=== PATIENT | female | born 1975 | race Two or more races ===

== ENCOUNTER → 2024-09-05 08:54 | Outpatient (REF) | payer OTHER, SELFPAY | LOC: WDC 08:54 | PROVIDERS: ATTENDING PHYSICIAN Surgery; FAMILY PHYSICIAN Internal Medicine | DX: N63.10 Unspecified lump in the right breast, unspecified quadrant (principal); N63.13 Unspecified lump in the right breast, lower outer quadrant; N63.31 Unspecified lump in axillary tail of the right breast | CPT/HCPCS: 76642; 77062; 77066 ==

== ENCOUNTER → 2024-11-29 11:17 | Outpatient (REF) | payer OTHER, SELFPAY | LOC: RAD 11:17 | PROVIDERS: ATTENDING PHYSICIAN Internal Medicine | DX: K59.09 Other constipation (principal) | CPT/HCPCS: 74019 ==

== ENCOUNTER → 2024-12-01 09:31 | Outpatient (REF) | payer OTHER, SELFPAY | LOC: RAD 09:31 | PROVIDERS: ATTENDING PHYSICIAN Obstetrics & Gynecology; FAMILY PHYSICIAN Internal Medicine; OTHER PHYSICIAN Internal Medicine | DX: K59.00 Constipation, unspecified (principal); K59.02 Outlet dysfunction constipation | CPT/HCPCS: 74270 ==

== ENCOUNTER 2025-05-10 05:48 | Day surgery (SDC) | payer OTHER, SELFPAY ==
[2025-04-28 09:09] LABS: Hematocrit 40.4 % (37.0-47.0); Hemoglobin 14.7 g/dL (12.0-16.0); Mean Corp Hgb Conc. 36.4 g/dL (33.0-37.0); Mean Corpuscular Volume 92.7 fL (81.0-99.0); Platelet Count 251 10^3/uL (130-400); Red Cell Dist. Width 12.6 % (11.5-14.5)
[2025-04-28 09:53] LABS: Blood Urea Nitrogen 15 mg/dl (7-17); Calcium 9.3 mg/dl (8.4-10.2); Carbon Dioxide 25 mmol/L (22-30); Chloride 102 mmol/L (98-107); Glucose 83 mg/dl (70-99); Potassium 4.2 mmol/L (3.5-5.1); Sodium 134 mmol/L (135-145); eGFR > 60.00
[2025-04-28 14:11] VITALS: BMI 19.8
[2025-05-10] VITALS (52 sets, daily range): BP systolic 82–133; BP diastolic 50–93; BMI 19.8
[2025-05-10] MEDS: NORMOSOL-R/PLASMALYTE-A 1000 IV ×3 (06:53→23:04)
[2025-05-10] MEDS: DDAVP 54 MCG IV (06:54)
--- NOTE | 2025-05-10 07:14 | PTCARENOTE ---
PT/PTT not drawn in PAT Dr. Cantor made aware. PT/PTT did not need to be drawn.
--- NOTE | 2025-05-10 07:15 | PTCARENOTE ---
PT/PTT was not ordered on PAT sheet.
[2025-05-10] MEDS: DILAUDID 0.5 MG IV ×5 (11:33→17:56)
[2025-05-10 11:45] LABS: Hematocrit 33.3 % (37.0-47.0); Hemoglobin 12.2 g/dL (12.0-16.0)
[2025-05-10] MEDS: OFIRMEV 100 IV (11:54)
[2025-05-10] MEDS: ZOFRAN 4 MG IV (13:26)
[2025-05-10] MEDS: FLEXERIL 5 MG PO (17:13)
[2025-05-10] MEDS: ATIVAN 0.5 MG PO (17:14)
--- NOTE | 2025-05-10 17:23 | PTCARENOTE ---
Pt arrived 1500. VSS 5 lap sites open to air with glue. acharya draining orange urine. IVF infusing. pain 03/16. medicated per MAR. oriented to room and call skelton. bed locked and in lowest position. Care ongoing.
--- NOTE | 2025-05-10 18:13 | PTCARENOTE ---
Pt complaining 8/10 pain 1 hour after 0.5mg Dilaudid was given. Pt has hx of chronic pain and worried about pain becoming out of control. Informed Dr. Cantor. order to give another dose of 0.5 Dilaudid now. Care ongoing.
[2025-05-10] MEDS: BENADRYL 25 MG IV (18:32)
[2025-05-10 18:38] LABS: Hematocrit 35.4 % (37.0-47.0); Hemoglobin 12.9 g/dL (12.0-16.0); Mean Corp Hgb Conc. 36.4 g/dL (33.0-37.0); Mean Corpuscular Volume 91.0 fL (81.0-99.0); Platelet Count 246 10^3/uL (130-400); Red Cell Dist. Width 11.4 % (11.5-14.5)
--- NOTE | 2025-05-10 19:12 | W.PN.UPDATE ---
Update Note
Progress Note Update
Patient seen in conjunction with VICE PRESIDENT DIVERSITY, I agree the findings on history and physical. I concur with the assessment and plan unless stated otherwise.
This is a 49-year-old female with past medical history significant for IBS, chronic pain, von Willebrand factor deficiency, PCOS, GERD, migraine headaches on as needed opioid analog tapentadol at 50mg 10 tablet per month who is status post
uncomplicated hysterectomy and prolapse repair this morning. Medicine is being consulted for pain management and concern for opioid withdrawal.
Patient is on multiple pain medications but only with small doses of tapentadol 50mg as needed. Tapentadol is the only narcotic that the patient has on the PDMP. She gets only 10 tablets per prescription and uses once daily PNR. She is also on
non-opioid analgesics prn. Based on prescription doses and current vital signs are physical exam patient is not at high risk for opioid withdrawal unless she is using nonprescription opioid medications.
Tapentadol is 0.4 mme equivalent. She does not tolerate dilaudid but has tolerated morphine well in the past
Recommendations
- Check urine drug screen
- Continue with regular postop pain management with use of morpine 2mg iv prn as needed for pain. Does not need nucynta if getting IV morphine prn
- Continue nonopioid/non-nsaids analgesics as described in the REPAIRER SCREEN CRUSHER note.
- rest of plan as per screenplay writer note
[2025-05-10] MEDS: COLACE 100 MG PO (19:42)
[2025-05-10] MEDS: ALDACTONE 100 MG PO (19:42)
--- NOTE | 2025-05-10 19:48 | CON.HOSP ---
Addendum entered and electronically signed by Fanny Thompson MD 05/10/25 22:02:
Patient seen in conjunction with BUSINESS INTELLIGENCE MANAGER, I agree the findings on history and physical. I concur with the assessment and plan unless stated otherwise.
This is a 49-year-old female with past medical history significant for IBS, chronic pain, von Willebrand factor deficiency, PCOS, GERD, migraine headaches on as needed opioid analog tapentadol at 50mg 10 tablet per month who is status post
uncomplicated hysterectomy and prolapse repair this morning. Medicine is being consulted for pain management and concern for opioid withdrawal.
Patient is on multiple pain medications but only with small doses of tapentadol 50mg as needed. Tapentadol is the only narcotic that the patient has on the PDMP. She gets only 10 tablets per prescription and uses once daily PRN. She is also on
non-opioid analgesics prn. Based on prescription doses and current vital signs are physical exam patient is not at high risk for opioid withdrawal unless she is using nonprescription opioid medications.
Tapentadol is 0.4 mme equivalent. She does not tolerate dilaudid and did develop a reaction after dilaudid today with tremulousness. She has tolerated morphine well in the past.
Recommendations
- Check urine drug screen
- Continue with regular postop pain management with use of morphine 2mg iv prn as needed for pain. Does not need nucynta if getting IV morphine prn
- Continue non-opioid/non-nsaids analgesics as described in the FOOD EXPEDITOR note.
- rest of plan as per scientific illustrator note
Original Note:
Family Physician
-
Family Physician: Dale Liu
Chief Complaint
-
Anxiety, tremulousness, itching post IV Dilaudid
History of Present Illness
49-year-old female status post total robotic hysterectomy bilateral salpingectomy, ureteral sacral ligament suspension,posterior colporrhaphy with perineoplasty.Culdoplasty who received IV Dilaudid then started having anxiety/tremulousness/itching
with no hives. She has history of anxiety/hyperactivity with Percocet and Vicodin. She is on chronic oral opiate Nucynta 50 mg as needed by pain management Dr. Liz. Patient also did receive p.o. Ativan for which she takes as needed but did not
call her anxiety down. She has tolerated morphine in the past without anxiety and tremulousness for pain. I discussed with patient if she is able to get a prescription for her Nucynta she can take that for pain and we will DC IV morphine. She is
contacting her pain management physician to see if he will write her for more medication and have her mother bring the medication in tomorrow. We will try IV Valium in place of IV Ativan due to shortage for anxiety and tremulousness. Will also
start Tylenol scheduled for pain control patient has history of von Willebrand's disease we will avoid any NSAIDs or Toradol
She has a past medical history Enterocele/rectocele stage III pelvic organ prolapse, Endometriosis/chronic pelvic pain, chronic neck and back pain on chronic oral opiates, chronic back spasms, von Willebrand's disease, ADHD, migraine headaches,
insomnia, PCOS, GERD, prior obesity, anxiety, acne, IBS, seasonal allergies
Medical History
Past Medical History
Past Medical History: Reports Other
Additional Past Medical History:
Enterocele/rectocele stage III pelvic organ prolapse, Endometriosis/chronic pelvic pain
chronic neck and back pain on chronic oral opiates
chronic back spasms
von Willebrand's disease
ADHD
migraine headaches
insomnia
PCOS
GERD
prior obesity
anxiety
acne
IBS
seasonal allergies
Past Surgical History: Reports Other
Additional Past Surgical History:
Sinus surgery x 4
Spinal fusion
D&C with ablation
Hernia repair as child
Glomus tumor surgery x 7
Toe surgery
Social History
Tobacco: Former Smoker
Alcohol: None
Drug: None
Living: With Family
Family History
Family History: Other (Father history colon polyps, paternal grandfather gastric cancer)
Allergies / Home Medications
Allergies reflects when Allergies were last updated in [facility].
Home Medications with original date entered in [facility]
Allergy/Medication List:
Allergies
Allergy/AdvReac Type Severity Reaction Status Date / Time
codeine Allergy hyperactivi Verified 05/10/25 06:31
ty
hydrocodone Allergy hyperactivi Verified 05/10/25 06:31
ty
hydromorphone Allergy Hives Verified 05/10/25 06:31
NSAIDS (Non-Steroidal Allergy von Verified 05/10/25 06:31
Anti-Inflamma willebrand
disease
oxycodone Allergy hyperactivi Verified 05/10/25 06:31
ty
tramadol Allergy Nausea Verified 05/10/25 06:31
Home Medications
Lactobacillus acidophilus 10 billion cell capsule (Probiotic) 10,000 mmu cells PO DAILY 05/03/25
cyclobenzaprine 5 mg tablet 5 mg PO PRN PRN pain 05/03/25
doxycycline hyclate 100 mg capsule 100 mg PO PRN PRN acne 05/03/25
gabapentin 300 mg capsule 300 mg PO PRN PRN migraines 05/03/25
hydroxyzine pamoate 25 mg capsule 25 mg PO PRN PRN allergies 05/03/25
linaclotide 145 mcg capsule (Linzess) 145 mcg PO PRN PRN IBS-C 05/03/25
lorazepam 0.5 mg tablet 0.5 mg PO PRN PRN anxiety 05/03/25
ondansetron HCl 8 mg tablet 8 mg PO PRN PRN N/V 05/03/25
oxcarbazepine 150 mg tablet 150 mg PO DAILY 05/03/25
oxcarbazepine 150 mg tablet 300 mg PO HS 05/03/25
pantoprazole 40 mg tablet,delayed release 40 mg PO DAILY 05/03/25
plecanatide 3 mg tablet (Trulance) 3 mg PO PRN PRN IBS-C 05/03/25
prucalopride 2 mg tablet 2 mg PO PRN PRN IBS-C 05/03/25
spironolactone 100 mg tablet 100 mg PO BID 05/03/25
suzetrigine 50 mg tablet (Journavx) 50 mg PO PRN PRN pain 05/03/25
tapentadol 50 mg tablet (Nucynta) 50 mg PO PRN PRN pain 05/03/25
tirzepatide (weight loss) 5 mg/0.5 mL subcutaneous pen injector (Zepbound) 5 mg SC NÚÑEZ 05/03/25
trazodone 100 mg tablet 150 mg PO HS 05/03/25
triamcinolone acetonide 0.1 % topical cream 1 applic topical PRN PRN eczema 05/03/25
ubrogepant 100 mg tablet (Ubrelvy) 100 mg PO PRN PRN migraines 05/03/25
valacyclovir 1 gram tablet 1,000 mg PO PRN PRN cold sore 05/03/25
Review of Systems
-
History Source: Patient
A 12 point Review of Systems was completed except as noted: Yes
Constitutional: Denies Fever or Fatigue
EENT: Denies Sore Throat or Runny Nose
Respiratory: Denies Cough or Trouble Breathing
Cardiac: Denies Chest Pain, Diaphoresis or Palpitations
Abdomen/GI: Denies Abdominal Pain, Nausea, Vomiting or Diarrhea
: Denies Dysuria, Frequency or Flank Pain
Musculoskeletal: Denies Joint Pain or Edema
Skin: Reports Itching; Denies Rash
Neurological: Denies Dizzy, Headache or Weakness
Endocrine: Reports No Symptoms
Hematologic/Lymphatic: Reports No Symptoms
Psych: Reports Anxiety (Tremulous)
Physical Exam
Vital Signs
Vital Signs
Temp Pulse Resp BP Pulse Ox
98.1 F 98 18 112/76 98
05/10/25 18:00 05/10/25 18:00 05/10/25 18:00 05/10/25 18:00 05/10/25 18:00
Physical Exam
General: Other (Patient anxious, tremulous and itching post IV Dilaudid likely adverse reaction)
HEENT: Normocephalic, Anicteric and Moist Mucous Membranes
Respiratory: Clear; Negative Wheezes, Rales or Rhonchi
Cardiac: S1/S2 and Regular Rhythm; Negative Murmur, Rub or Peripheral Edema
Breast: Deferred by me
GI: Soft and Tender (Slight generalized laparoscopic sites intact.)
Rectal: Deferred by Provider
Musculoskeletal: No Clubbing, No Cyanosis and No Edema
Skin: Warm, Dry and Other (No visible rash or hives is scratching does have slight redness at scratch ontiveros no airway difficulty); Negative Rash
Neuro: AO x 3, No Motor Deficits and Nonfocal/Grossly Intact; Negative Slurred Speech, Facial Droop, Tremors or Sedated
Psych: Anxious (And tremulous post IV Dilaudid)
Laboratory Results
-
Laboratory Results
05/10/25 18:32
04/28/25 08:44
Impression / Plan
-
Medical consultation
Impression/plan
Patient Admitted to [facility] floor
Consult reason:
#Acute on chronic pain management
Patient follows with Dr. Liz for pain management of chronic neck and back pain
-Does not have any more Nucynta 50 mg she takes as needed she is calling pain management to attempt to get prescription if she obtains prescription she may take 50 mg once daily then DC IV morphine
-Patient also on Journavx but is also out of this medication we do not have equivalent
- Patient with history of anxiety/hyperactivity with Percocet/Vicodin
- After patient receiving IV Dilaudid for pain she became extremely anxious and tremulous
- P.o. Ativan attempted with no help
- Will try IV Valium
- Patient has tolerated IV morphine in the past for pain IV morphine 2 mg mild pain, 4 mg moderate�severe
- Will give Tylenol 650 mg scheduled x 8 doses
- Continue Flexeril 5 mg as needed back spasms
- Continue Benadryl as needed
Enterocele/rectocele stage III pelvic organ prolapse
Endometriosis/chronic pelvic pain
Patient status post total robotic hysterectomy bilateral salpingectomy, ureteral sacral ligament suspension,posterior colporrhaphy with perineoplasty.Culdoplasty.
- Patient being followed by Dr. Andre Cantor
#Von Willebrand's disease
-Patient reports was given DDAVP prior to surgery
-Cannot have any NSAIDs or Toradol
#ADHD hx
#Migraine headaches
-Continue gabapentin 300 mg p.o. as needed
-Continue Tegretol 150 mg a.m., 300 mg at bedtime, Zofran as needed
#Insomnia
May have 5 mg melatonin
#PCOS
- Continue spironolactone
#GERD
Continue Protonix 40 mg daily
#IBS
- Patient takes prucalopride 2 mg as needed IBS symptoms and Trulance 3 mg as needed
Patient on Linzess 145 mcg p.o. as needed
#History of obesity current BMI 19.8 kg
Patient is on Zepbound 5 mg subcu on Sundays which suggest titration down
#Acne
Patient takes doxycycline 100 mg p.o. as needed
DVT prophylaxis
SCDs
Full code
[2025-05-10] MEDS: VALIUM INJECTION 5 MG IV (19:57)
[2025-05-10] MEDS: TYLENOL 650 MG PO (19:58)
[2025-05-10] MEDS: TRILEPTAL 300 MG PO (21:20)
[2025-05-10] MEDS: BENADRYL 25 MG PO (21:20)
[2025-05-10] MEDS: DESYREL 150 MG PO (21:20)
[2025-05-10] MEDS: MORPHINE SULFATE 4 MG IV (21:30)
[2025-05-11] MEDS: TYLENOL 650 MG PO ×4 (01:07→20:45)
--- NOTE | 2025-05-11 03:02 | PTCARENOTE ---
Addendum entered by Swati Barfield RN 05/11/25 03:10:
Pt reported only drips on urine at time.
Original Note:
Pt ambulated to bathroom assist x1. Very anxious about catheter. Instructed that it will be taken out at 0500 per order. Pt insisting it to be removed now because she cannot have a BM. Pt visibility anxious and shaking. BOY Pizarro called and
aware. Instructed it was okay to remove packing & catheter at this time. Pt ambulated back to bed. Vaginal packing and catheter removed at 0300. Pt quickly ambulated back to bathroom to have a bowel movement. Pt seen straining to have a BM.
Educated on the risks of straining. Pt also reported urinating in toilet prior to when hat was placed. Care ongoing.
[2025-05-11 03:20] VITALS: BP 127/85
[2025-05-11] MEDS: MORPHINE SULFATE 4 MG IV ×2 (03:33→06:33)
[2025-05-11] MEDS: FLEXERIL 5 MG PO ×2 (04:43→08:52)
[2025-05-11] MEDS: LINZESS 145 MCG PO (04:50)
[2025-05-11] MEDS: NORMOSOL-R/PLASMALYTE-A 1000 IV (06:23)
[2025-05-11 07:30] VITALS: BP 107/65
--- NOTE | 2025-05-11 07:52 | W.PN.GYN ---
Today's Communication / Plan
-
followup chemistry, restart home meds and stop IV pain medications, discharge today
Physician Note
-
49yoF PMH rectocele, PCOS, von willebrand disease, chronic pain POD1 s/p A robotic total hysterectomy and bilateral salpingectomy, robotic assisted uterosacral ligament suspension, posterior colporrhaphy with perineoplasty, Culdoplasty 05/10/25
Patient was evaluated on AM rounds. Internal medicine was consulted for postop pain control and history of chronic pain. Patient�s incisional pain is currently controlled on morphine 4mg every 3hours. She is tolerating liquids and ambulated to the
bathroom without difficulty. Eckert and vaginal packing was removed this morning and is voiding. She has constipation and last BM was three days ago. She says taking zepbound usually helps her have a BM. She denies nausea, vomiting, chest pain, SOB.
O :
GA: Well appearing female in NAD
HEENT: Normocephalic, EOMI
Abd: soft, nondistended, sutures intact with dermabond,minimal ecchymosis surrounding middle incision incisional tenderness
: no bleeding noted from vaginal incisions
Ext: no lower extremity edema, mild edema in right arm near IV site mild edema in left arm
Vital Signs
Temp Pulse Resp BP Pulse Ox
98.5 F 102 17 127/85 99
05/11/25 03:20 05/11/25 03:20 05/11/25 03:20 05/11/25 03:20 05/11/25 03:20
Intake and Output
05/10/25 05/11/25 05/12/25
06:59 06:59 06:59
Intake Total 200 / 200
Output Total 1974
Balance -1774 / -1774
Intake:
IV fluids (Total) 200 / 200
normasol 200 / 200
Output:
Urine, Eckert 1824
Urine, Voided 150 / 150
Laboratory Results
05/11/25 07:38
Plan
- Stop IV pain analgesics
- Continue to monitor vitals
- Resume home medications including home oral analgesics
- Monitor vaginal incision bleeding
- Apply warm pack to arm swelling which is likely from IV fluids
- Continue SCDs for DVT prophylaxis
- May discontinue IV fluids
- Regular diet
- Out of bed with assistance
- Followup AM BMP
- Likely discharge home after breakfast
[2025-05-11 08:16] LABS: Hematocrit 32.6 % (37.0-47.0); Hemoglobin 12.0 g/dL (12.0-16.0); Mean Corp Hgb Conc. 36.8 g/dL (33.0-37.0); Mean Corpuscular Volume 91.3 fL (81.0-99.0); Platelet Count 229 10^3/uL (130-400); Red Cell Dist. Width 11.2 % (11.5-14.5)
[2025-05-11] MEDS: PROTONIX 40 MG PO (08:38)
[2025-05-11] MEDS: TRILEPTAL 150 MG PO (08:39)
[2025-05-11] MEDS: ALDACTONE 100 MG PO ×2 (08:39→20:46)
[2025-05-11] MEDS: COLACE 100 MG PO ×2 (08:39→20:45)
[2025-05-11 08:57] LABS: Blood Urea Nitrogen 6 mg/dl (7-17); Carbon Dioxide 22 mmol/L (22-30); Chloride 100 mmol/L (98-107); Estimated Creatinine Clearance 99 ml/min; Potassium 3.9 mmol/L (3.5-5.1); Sodium 124 mmol/L (135-145)
[2025-05-11] MEDS: DILAUDID 2 MG PO ×3 (10:32→21:00)
--- NOTE | 2025-05-11 10:37 | CM ---
Reviewed the chart notes and spoke with the patient at the bedside. The patient resides alone in a two story home with four steps to enter. The patient reports no DME/VN/SNF. The patient confirmed her pharmacy of choice is [facility]
[place]. CM continues to be available to patient/family and is monitoring medical plan for needs at discharge.
Plan: Discharge to home no needs identified at this time. Friend will provide transportation.
[2025-05-11] MEDS: ATIVAN 0.5 MG PO (11:34)
--- NOTE | 2025-05-11 12:31 | W.PN.HOSP.TC ---
Today's Communication/Plan
-
see A/P
Assessment / Plan
Assessment / Plan
HPI: 49-year-old female with past medical history significant for IBS, chronic pain, von Willebrand factor deficiency, PCOS, GERD, migraine headaches on as needed opioid analog tapentadol at 50mg 10 tablet per month, who is status post uncomplicated
hysterectomy and prolapse repair.
Medicine is being consulted for pain management and concern for opioid withdrawal.
Patient is on multiple pain medications but only with small doses of tapentadol 50mg as needed. Tapentadol is the only narcotic that the patient has on the PDMP. She gets only 10 tablets per prescription and uses once daily PRN. She is also on
non-opioid analgesics prn.
Based on prescription doses, current vital signs and physical exam, patient is not at high risk for opioid withdrawal unless she is using nonprescription opioid medications.
Tapentadol is 0.4 mme equivalent. She does not tolerate dilaudid and did develop a reaction after Dilaudid with tremulousness. She has tolerated morphine well in the past.
A/P:
# Pain management
Cont current Tylenol PRN , Dilaudid PRN
Avoiding NSAID in setting of Von Willebrand's disease
Continue Flexeril 5 mg as needed back spasms
Continue Benadryl as needed
# Hyponatremia, likely SIADH
Sodium level 134 -> 124
Check urine sodium and Osm
Monitor sodium level
# Enterocele/rectocele stage III pelvic organ prolapse
# Endometriosis/chronic pelvic pain
status post total robotic hysterectomy bilateral salpingectomy, ureteral sacral ligament suspension, posterior colporrhaphy with perineoplasty.
post op care per surgeon
# Von Willebrand's disease
Patient reports was given DDAVP prior to surgery
Cannot have any NSAIDs or Toradol
#ADHD hx
# Migraine headaches
Continue gabapentin 300 mg p.o. as needed
Continue Tegretol 150 mg a.m., 300 mg at bedtime, Zofran as needed
# Insomnia
Melatonin
# PCOS
spironolactone
# GERD
Continue Protonix 40 mg daily
# IBS
Patient on Linzess 145 mcg p.o. as needed
# Acne
Patient takes doxycycline 100 mg p.o. as needed
DVT prophylaxis: SCDs
Full code
DW RN
Anticipated Discharge: 24 - 48 hours
Subjective/Interval History
-
Date of Service: May 11, 2025
Objective Data
-
Labs:
Laboratory Results
05/11/25
07:38
WBC 10.1
Hgb 12.0
Hct 32.6 L
Plt Count 229
Sodium 124 L
Potassium 3.9
Chloride 100
Carbon Dioxide 22
BUN 6 L
Creatinine 0.5 L
Vital Signs:
Vital Signs
Temp Pulse Resp BP Pulse Ox
36.4 C 88 16 107/65 98
05/11/25 07:30 05/11/25 07:30 05/11/25 07:30 05/11/25 07:30 05/11/25 07:30
I&O
05/10/25 05/11/25 05/12/25
06:59 06:59 06:59
Intake Total 200 / 200
Output Total 1974
Balance -1774 / -1774
Review of Systems
-
History Source: Patient
All other systems: Reviewed and negative
Physical Exam
-
General: Well Developed, Well Nourished, No Apparent Distress, Comfortable and Conversant; Negative Respiratory Distress
HEENT: Normocephalic, Atraumatic, Nose Appears Normal and Ears Appear Normal; Negative Oxygen
Respiratory: Clear to Auscultation and Non Labored Respirations; Negative Accessory Resp Muscle Use
Cardiac: Regular Rhythm and S1/S2
GI: Soft, Nontender, Nondistended and Other (surgical site intact)
Skin: Warm and Dry
Neuro: Awake, Alert, Oriented and AO x 3
Psych: Calm and Intact Judgement/Insight
Data Reviewed
-
Labs: Labs Reviewed by me
[2025-05-11 15:15] VITALS: BP 133/86
[2025-05-11] MEDS: BENADRYL 25 MG PO ×2 (16:34→22:02)
[2025-05-11] MEDS: NON-FORMULARY ITEM 0.5 ML SC (16:54)
[2025-05-11] MEDS: NON-FORMULARY ITEM 2 MG PO (16:55)
[2025-05-11] MEDS: ATARAX 25 MG PO (21:00)
[2025-05-11] MEDS: DESYREL 150 MG PO (21:54)
[2025-05-11] MEDS: TRILEPTAL 300 MG PO (21:54)
[2025-05-11 23:05] VITALS: BP 102/61
[2025-05-12] MEDS: FLEXERIL 5 MG PO (02:57)
[2025-05-12] MEDS: TYLENOL PO ×2 (03:00→08:46)
--- NOTE | 2025-05-12 06:10 | PTCARENOTE ---
Patient c/o continued itching after po dilaudid. Benadryl per prn order.
[2025-05-12 07:39] VITALS: BP 84/54
[2025-05-12 07:50] LABS: Blood Urea Nitrogen 5 mg/dl (7-17); Calcium 8.8 mg/dl (8.4-10.2); Carbon Dioxide 27 mmol/L (22-30); Chloride 100 mmol/L (98-107); Estimated Creatinine Clearance 99 ml/min; Glucose 97 mg/dl (70-99); Potassium 4.0 mmol/L (3.5-5.1); Sodium 129 mmol/L (135-145); eGFR > 60.00
--- NOTE | 2025-05-12 07:59 | W.PN.GYN ---
Today's Communication / Plan
-
Likely discharge
Physician Note
-
49yoF PMH rectocele, PCOS, von willebrand disease, chronic pain POD2 s/p robotic total hysterectomy and bilateral salpingectomy, robotic assisted uterosacral ligament suspension, posterior colporrhaphy with perineoplasty, Culdoplasty 05/10/25
Course was complicate by hyponatremia. Internal Medicine team was consulted and suspect SIADH. Today's sodium increased to 129.
Patient was evaluated on AM rounds. Patient was transitioned to PO analgesics yesterday. Her incisional pain is controlled on prn tylenol and dilaudid however she has developed bothersome rash on her body from the dilaudid. Benadryl improves it
however she declines further using dilaudid due to bothersome rash from it and is requesting a different analgesic. She cannot tolerate oxycodone or tramadol.
She is tolerating regular diet and ambulated to the bathroom without difficulty. She has not had a BM yet. She denies nausea, vomiting, chest pain, SOB.
O :
GA: Well appearing female in NAD
HEENT: Normocephalic, EOMI
Abd: soft, nondistended, sutures intact with dermabond, mild ecchymosis noted around umbilical incision, incisional tenderness
: no vaginal bleeding
Ext: b/l UE edema improved
Vital Signs
Temp Pulse Resp BP Pulse Ox
98.2 F 85 17 84/54 96
05/12/25 07:39 05/12/25 07:39 05/12/25 07:39 05/12/25 07:39 05/12/25 07:39
Intake and Output
05/11/25 05/12/25 05/13/25
06:59 06:59 06:59
Intake Total 200 / 200 930 / 930
Output Total 1974 / 1974 650 / 650
Balance -1775 / -1775 280 / 280
Intake:
Oral fluids 930 / 930
IV fluids (Total) 200 / 200
normasol 200 / 200
Output:
Urine, Eckert 182 / 1824
Urine, Voided 150 / 150 650 / 650
Other:
Number of approximated MODERATE 2
amounts of urine
Laboratory Results
05/12/25 06:41
Plan
- Continue to monitor vitals; repeat AM BP
- Followup AM CBC
- Followup Internal Medicine reccs
- Continue home medications
- Monitor vaginal incision bleeding
- Tylenol prn and vaginal ice packs for mild/moderate pain and dilaudid prn for severe pain
- Add lidocaine patches to abdomen
- Benadryl IV with dilaudid
- Continue SCDs for DVT prophylaxis
- Regular diet
- Out of bed
- Likely discharge home later today
--- NOTE | 2025-05-12 08:19 | W.DCSUMMARY ---
Documented by User: Florence Monsalve PA-C 05/12/25 12:20
Discharge Summary
Discharge Data
Date of Admission: 05/10/25
Date of Discharge: 05/12/25
-
Pending Results: No
Hospital Course
49yoF PMH rectocele, PCOS, von willebrand disease, chronic pain POD2 s/p robotic total hysterectomy and bilateral salpingectomy, robotic assisted uterosacral ligament suspension, posterior colporrhaphy with perineoplasty, Culdoplasty 05/10/25
Course was complicate by hyponatremia (patient was given a dose of desmopressin day before surgery). Internal Medicine team was consulted for hyponatremia and poor pain control off nucynta.
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 She will followup for repeat BMP in one week.
Course was also complicated by poor pain control as patient takes nucynta for chronic pain. Patient's pain has been tolerated with po dilaudid prn and po tylenol. However, she had developed hives from dilaudid which have improved with benadryl. She
had run out of nucynta rx and is pending refill from her pain specialist. Due to her multiple alleries to opioids including diluadid, oxycodone, tramadol she was instructed to followup with her pain specialist for refill of her nucynta. She may also
continue tylenol prn for pain and lidoderm patches. Continue heating packs or ice packs to incisions.
Patient's pain is currently controlled. She is ambulating, tolerating diet, voiding. She has not yet had a BM but was instructed regarding postop bowel regimen. She may take prn milk of magnesia and fleet enema at home if continued postop
constipation in setting of chronic opioid usage (patient instructed to refer to discharge paperwork provided at preop appointment) Patient will followup in the office for a postop check in 2 weeks. Followup with PCP for repeat BMP.
Discharge Plan
-
Patient Disposition: Home (Routine Discharge)
Discharge Diagnosis/Procedures: POP s/p total hysterectomy, uterosacral ligament suspension, culdoplasty posterior colporrhaphy
Condition: Good
Diet: No restrictions
Activity: No strenuous activity
Additional Activity: no heavy lifting over 10lbs for 6 weeks
Driving Restrictions: No driving for 24 hours
Bathing Restrictions: no using the bathtub for 6 weeks
Activity Restrictions/Additional Instructions:
follow postop instructions given at preop visit
Referrals:
Dale Liu MD [Family Provider, Internal Medicine]
Prescriptions:
Continued
oxcarbazepine 150 mg tablet
150 mg PO DAILY
oxcarbazepine 150 mg Tablet
300 mg PO HS
doxycycline hyclate 100 mg capsule
100 mg PO PRN PRN (Reason: acne)
valacyclovir 1 gram tablet
1,000 mg PO PRN PRN (Reason: cold sore)
ondansetron HCl 8 mg tablet
8 mg PO PRN PRN (Reason: N/V)
spironolactone 100 mg tablet
100 mg PO BID
triamcinolone acetonide 0.1 % cream
1 applic TOPICAL PRN PRN (Reason: eczema)
lorazepam 0.5 mg tablet
0.5 mg PO PRN PRN (Reason: anxiety)
trazodone 100 mg tablet
150 mg PO HS
pantoprazole 40 mg tablet,delayed release (DR/EC)
40 mg PO DAILY
gabapentin 300 mg capsule
300 mg PO PRN PRN (Reason: migraines)
hydroxyzine pamoate 25 mg capsule
25 mg PO PRN PRN (Reason: allergies)
cyclobenzaprine 5 mg tablet
5 mg PO PRN PRN (Reason: pain)
Nucynta 50 mg tablet
50 mg PO PRN PRN (Reason: pain)
Linzess 145 mcg capsule
145 mcg PO PRN PRN (Reason: IBS-C)
Probiotic 10 billion cell Capsule
10,000 mmu cells PO DAILY
prucalopride 2 mg tablet
2 mg PO PRN PRN (Reason: IBS-C)
Trulance 3 mg tablet
3 mg PO PRN PRN (Reason: IBS-C)
Ubrelvy 100 mg tablet
100 mg PO PRN PRN (Reason: migraines)
Zepbound 5 mg/0.5 mL Pen Injector
5 mg SC NÚÑEZ
Journavx 50 mg tablet
50 mg PO PRN PRN (Reason: pain)
Discharge Orders:
Discharge Patient (As Directed); Ordered 05/11/25
Ordered By: Florence Monsalve
Discharge Date and Time
Discharge Date/Time: 05/12/25 16:00
Print Language: YAKUT

Documented by User: Andre Cantor MD 05/16/25 13:17
Discharge Summary
Discharge Data
Date of Admission: 05/10/25
Date of Discharge: 05/12/25
-
Pending Results: No
Discharge Plan
-
Patient Disposition: Home (Routine Discharge)
Discharge Diagnosis/Procedures: POP s/p total hysterectomy, uterosacral ligament suspension, culdoplasty posterior colporrhaphy
Condition: Good
Diet: No restrictions
Activity: No strenuous activity
Additional Activity: no heavy lifting over 10lbs for 6 weeks
Driving Restrictions: No driving for 24 hours
Bathing Restrictions: no using the bathtub for 6 weeks
Activity Restrictions/Additional Instructions:
follow postop instructions given at preop visit
Referrals:
Dale Liu MD [Family Provider, Internal Medicine]
Prescriptions:
Continued
oxcarbazepine 150 mg tablet
150 mg PO DAILY
oxcarbazepine 150 mg Tablet
300 mg PO HS
doxycycline hyclate 100 mg capsule
100 mg PO PRN PRN (Reason: acne)
valacyclovir 1 gram tablet
1,000 mg PO PRN PRN (Reason: cold sore)
ondansetron HCl 8 mg tablet
8 mg PO PRN PRN (Reason: N/V)
spironolactone 100 mg tablet
100 mg PO BID
triamcinolone acetonide 0.1 % cream
1 applic TOPICAL PRN PRN (Reason: eczema)
lorazepam 0.5 mg tablet
0.5 mg PO PRN PRN (Reason: anxiety)
trazodone 100 mg tablet
150 mg PO HS
pantoprazole 40 mg tablet,delayed release (DR/EC)
40 mg PO DAILY
gabapentin 300 mg capsule
300 mg PO PRN PRN (Reason: migraines)
hydroxyzine pamoate 25 mg capsule
25 mg PO PRN PRN (Reason: allergies)
cyclobenzaprine 5 mg tablet
5 mg PO PRN PRN (Reason: pain)
Nucynta 50 mg tablet
50 mg PO PRN PRN (Reason: pain)
Linzess 145 mcg capsule
145 mcg PO PRN PRN (Reason: IBS-C)
Probiotic 10 billion cell Capsule
10,000 mmu cells PO DAILY
prucalopride 2 mg tablet
2 mg PO PRN PRN (Reason: IBS-C)
Trulance 3 mg tablet
3 mg PO PRN PRN (Reason: IBS-C)
Ubrelvy 100 mg tablet
100 mg PO PRN PRN (Reason: migraines)
Zepbound 5 mg/0.5 mL Pen Injector
5 mg SC NÚÑEZ
Journavx 50 mg tablet
50 mg PO PRN PRN (Reason: pain)
Discharge Orders:
Discharge Patient (As Directed); Ordered 05/11/25
Ordered By: Florence Monsalve
Discharge Date and Time
Discharge Date/Time: 05/12/25 16:00
Print Language: YAKUT
[2025-05-12] MEDS: TRILEPTAL 150 MG PO (08:41)
[2025-05-12 08:45] VITALS: BP 112/92
[2025-05-12] MEDS: NON-FORMULARY ITEM 2 MG PO (08:46)
[2025-05-12] MEDS: COLACE 100 MG PO (08:46)
[2025-05-12] MEDS: PROTONIX 40 MG PO (08:46)
[2025-05-12] MEDS: ALDACTONE PO (08:47)
[2025-05-12] MEDS: DILAUDID 2 MG PO (09:42)
[2025-05-12] MEDS: BENADRYL 12.5 MG IV (09:43)
[2025-05-12] MEDS: LINZESS 145 MCG PO (09:44)
[2025-05-12] MEDS: LIDOCAINE 4% PATCH 2 PATCH TOPICAL (09:49)
[2025-05-12] MEDS: ZOFRAN 4 MG IV (09:52)
[2025-05-12 09:54] LABS: Hematocrit 36.7 % (37.0-47.0); Hemoglobin 13.4 g/dL (12.0-16.0); Mean Corp Hgb Conc. 36.5 g/dL (33.0-37.0); Mean Corpuscular Volume 91.3 fL (81.0-99.0); Platelet Count 265 10^3/uL (130-400); Red Cell Dist. Width 11.1 % (11.5-14.5)
[2025-05-12 11:11] VITALS: BP 130/63
--- NOTE | 2025-05-12 11:19 | W.PN.HOSP.TC ---
Today's Communication/Plan
-
see A/P
Assessment / Plan
Assessment / Plan
HPI: 49-year-old female with past medical history significant for IBS, chronic pain, von Willebrand factor deficiency, PCOS, GERD, migraine headaches on as needed opioid analog tapentadol at 50mg 10 tablet per month, who is status post uncomplicated
hysterectomy and prolapse repair.
Medicine is being consulted for pain management and concern for opioid withdrawal.
Patient is on multiple pain medications but only with small doses of tapentadol 50mg as needed. Tapentadol is the only narcotic that the patient has on the PDMP. She gets only 10 tablets per prescription and uses once daily PRN. She is also on
non-opioid analgesics prn.
Based on prescription doses, current vital signs and physical exam, patient is not at high risk for opioid withdrawal unless she is using nonprescription opioid medications.
Tapentadol is 0.4 mme equivalent. She does not tolerate dilaudid and did develop a reaction after Dilaudid with tremulousness. She has tolerated morphine well in the past.
A/P:
# Pain management
Cont current Tylenol PRN , change Dilaudid to morphine due to hives
Benadryl PRN
Avoiding NSAID in setting of Von Willebrand's disease
Continue Flexeril 5 mg as needed back spasms
Try warm compress for back pain
# Hyponatremia, 2/2 SIADH
noted urine sodium and Osm
Sodium level 134 -> 129 today
Monitor sodium level
# Enterocele/rectocele stage III pelvic organ prolapse
# Endometriosis/chronic pelvic pain
status post total robotic hysterectomy bilateral salpingectomy, ureteral sacral ligament suspension, posterior colporrhaphy with perineoplasty.
post op care per surgeon
# Von Willebrand's disease
Patient reports was given DDAVP prior to surgery
Cannot have any NSAIDs or Toradol
#ADHD hx
# Migraine headaches
Continue gabapentin 300 mg p.o. as needed
Continue Tegretol 150 mg a.m., 300 mg at bedtime, Zofran as needed
# Insomnia
Melatonin
# PCOS
spironolactone
# GERD
Continue Protonix 40 mg daily
# IBS
Patient on Linzess 145 mcg p.o. as needed
# Acne
Patient takes doxycycline 100 mg p.o. as needed
DVT prophylaxis: SCDs
Full code
DW RN
Anticipated Discharge: Within 24 hours
Subjective/Interval History
-
Date of Service: May 12, 2025
Objective Data
-
Labs:
Laboratory Results
05/12/25
06:41
WBC 5.6
Hgb 13.4
Hct 36.7 L
Plt Count 265
Sodium 129 L
Potassium 4.0
Chloride 100
Carbon Dioxide 27
BUN 5 L
Creatinine 0.5 L
Glucose 97
Calcium 8.8
Vital Signs:
Vital Signs
Temp Pulse Resp BP Pulse Ox
36.6 C 67 17 130/63 97
05/12/25 11:11 05/12/25 11:11 05/12/25 11:11 05/12/25 11:11 05/12/25 11:11
I&O
05/11/25 05/12/25 05/13/25
06:59 06:59 06:59
Intake Total 200 / 200 930 / 930
Output Total 1974 / 1974 650 / 650
Balance -1775 / -1775 280 / 280
[2025-05-12 15:21] VITALS: BP 105/69
== END 2025-05-12 16:00 | disposition home or self-care (01) ==
LOC: SDS 05:48
PROVIDERS: ATTENDING PHYSICIAN Obstetrics & Gynecology; CONSULT PHYSICIAN Internal Medicine; FAMILY PHYSICIAN Internal Medicine
DX: N81.6 Rectocele (principal); G89.29 Other chronic pain; R10.2 Pelvic and perineal pain; N81.5 Vaginal enterocele; N39.3 Stress incontinence (female) (male); N36.41 Hypermobility of urethra; F41.9 Anxiety disorder, unspecified; D68.00 Von Willebrand disease, unspecified; E87.1 Hypo-osmolality and hyponatremia; L50.0 Allergic urticaria; T40.2X5A Adverse effect of other opioids, initial encounter; N72 Inflammatory disease of cervix uteri
CPT/HCPCS: 58571; 57283; 57250; 36415; 80048; 80051; 82565; 83935; 84300; 84520; 85014; 85018; 85027; 86850; 86900; 86901; 87070; 88305; 93005; J2597

== ENCOUNTER 2025-08-25 23:05 | Emergency (ER) | payer OTHER, SELFPAY ==
[2025-08-25 23:24] VITALS: BP 109/72
[2025-08-26 03:36] VITALS: BP 106/71
[2025-08-26 05:33] VITALS: BMI 21.1
[2025-08-26 05:36] VITALS: BP 114/78
--- NOTE | 2025-08-26 06:05 | ED.GENMED ---
History of Present Illness
General
Chief Complaint: Skin Problem
Source: patient
Exam Limitations: none
Time Seen by Provider: 08/26/25 05:49
Nursing documentation reviewed up to this point in time: agreed with
History of Present Illness
History of Present Illness:
50-year-old female with history as noted presents to the ER for evaluation of redness on her right arm. Patient had a basal cell lesion removed from the right dorsal forearm by her proposal lead writer on Thursday evening. Over the next few days she
started to notice some redness around the area and was seen in urgent care yesterday and diagnosed with cellulitis. She was started on Keflex and took 4 total doses yesterday but today she noticed that she was having some increased redness which
prompted her to come to the ER for assessment. She denies any fevers or chills or any other acute complaints.
Review of Systems
Review of Systems
All Other Systems: ROS reviewed and negative except as documented in HPI and ROS
Constitutional: Denies fever or chills
Skin: Reports other (Redness of the right forearm near basal cell resection)
Phy Exam
Physical Exam
Physical Exam:
General: Well appearing and non-toxic
HEENT: protecting airway
Neck: appears supple
CV: No evidence of cyanosis
Resp: No accessory muscle use
Abd: Non-distended
Extremities: No deformities
Neuro: Alert
Psych: Normal affect
Skin: Patient has a small 0.5 cm diameter circular wound on the dorsum of the right forearm with a wider area of erythema surrounding and mild tenderness to the touch but no fluctuance or drainage, no streaking/lymphangitis, no edema
Scores
Heart Failure Risk
Heart Failure Risk Score: Not Applicable
Heart Score for Chest Pain Patients
STEMI patient?: Not applicable
Withdrawal Assessment of Alcohol
Withdrawal Assessment Completed?: Not applicable
Course
Orders/Labs/Results
Orders:
Orders
08/26/25 06:02
Doxycycline [Vibramycin] 100 mg PO NOW STA
Vital Signs
Initial and Last Documented VS:
Initial Vital Signs
Temp Pulse Resp BP Pulse Ox
36.6 C 89 20 109/72 100
08/25/25 23:24 08/25/25 23:24 08/25/25 23:24 08/25/25 23:24 08/25/25 23:24
Last Documented Vital Signs
Temp Pulse Resp BP Pulse Ox
36.8 C 78 14 114/78 100
08/26/25 05:36 08/26/25 05:36 08/26/25 05:36 08/26/25 05:36 08/26/25 05:36
MDM/Problems Addressed
Differential Diagnosis Includes:
Cellulitis, abscess, nothing to suggest DVT
MDM/Problems Addressed:
50-year-old female presents with redness and pain around site of recent basal cell resection. She was seen in urgent care diagnosed with cellulitis yesterday and took 4 doses of Keflex but did not notice improvement which prompted ER visit.
Vitals and exam as above. She does appear to have cellulitis but no lymphangitis, no abscess. Will plan to broaden antibiotic coverage�add doxycycline for MRSA coverage. Advised to continue Keflex as well. Skin marked in order to follow redness
and clean dressing applied. Stable for discharge to follow-up with primary doctor and proposal lead writer. All questions answered.
*Pulse Oximetry
SaO2: 100
Oxygen Mode of Delivery: Room air
Patient hypoxic: no (100%)
*Critical Care Note
Total Time (30-74mins, 75-104mins- exclusive of procedures): Not Applicable
Data Reviewed
Source: patient
ED Attending Note
-
Portions of this chart may have been created with voice recognition software.� Occasional wrong word or��sound alike� substitutions may have occurred due to the inherent limitations of voice recognition software.
Discharge Plan
Departure
Patient Disposition: Home (Routine Discharge)
Date of Disposition: 08/26/25
Time of Disposition: 06:03
Patient with high blood pressure during this ER visit?: No
Discharge Problem:
Cellulitis
Instructions: Cellulitis (Skin Infection), Adult (DC)
Prescriptions:
New
doxycycline hyclate 100 mg tablet
100 mg PO BID Qty: 20 0RF
No Action
oxcarbazepine 150 mg tablet
150 mg PO DAILY
oxcarbazepine 150 mg Tablet
300 mg PO HS
doxycycline hyclate 100 mg capsule
100 mg PO PRN PRN (Reason: acne)
valacyclovir 1 gram tablet
1,000 mg PO PRN PRN (Reason: cold sore)
ondansetron HCl 8 mg tablet
8 mg PO PRN PRN (Reason: N/V)
spironolactone 100 mg tablet
100 mg PO BID
triamcinolone acetonide 0.1 % cream
1 applic TOPICAL PRN PRN (Reason: eczema)
lorazepam 0.5 mg tablet
0.5 mg PO PRN PRN (Reason: anxiety)
trazodone 100 mg tablet
150 mg PO HS
pantoprazole 40 mg tablet,delayed release (DR/EC)
40 mg PO DAILY
gabapentin 300 mg capsule
300 mg PO PRN PRN (Reason: migraines)
hydroxyzine pamoate 25 mg capsule
25 mg PO PRN PRN (Reason: allergies)
cyclobenzaprine 5 mg tablet
5 mg PO PRN PRN (Reason: pain)
Nucynta 50 mg tablet
50 mg PO PRN PRN (Reason: pain)
Linzess 145 mcg capsule
145 mcg PO PRN PRN (Reason: IBS-C)
Probiotic 10 billion cell Capsule
10,000 mmu cells PO DAILY
prucalopride 2 mg tablet
2 mg PO PRN PRN (Reason: IBS-C)
Trulance 3 mg tablet
3 mg PO PRN PRN (Reason: IBS-C)
Ubrelvy 100 mg tablet
100 mg PO PRN PRN (Reason: migraines)
Zepbound 5 mg/0.5 mL Pen Injector
5 mg SC NÚÑEZ
Journavx 50 mg tablet
50 mg PO PRN PRN (Reason: pain)
Referrals:
Dale Liu MD [Family Provider, Internal Medicine] - Follow up in 1 week
Activity Restrictions/Additional Instructions:
Please return if your redness is worsening or if it is not improving with antibiotics as we discussed, or if you develop any new symptoms that are concerning to you.
Interventions
Interventions:
*General Assessment Last Done: 08/25/25 23:24
*Neglect/Abuse Screening Last Done: 08/25/25 23:24
*ED COVID-19 Vaccine History Last Done: 08/25/25 23:24
*ED Influenza Vaccine History Last Done: 08/25/25 23:24
[facility] Fall Risk Assessment Tool Last Done: 08/26/25 05:25
*Risk Screen - Suicide (C-SSRS) Last Done: 08/26/25 05:25
ED-Skin Assessment Last Done: 08/26/25 05:25
Discharge Date and Time
Print Language: MONTENEGRIN
[2025-08-26] MEDS: VIBRAMYCIN 100 MG PO (06:19)
== END 2025-08-26 06:20 | disposition home or self-care (01) ==
LOC: EMR 23:05
PROVIDERS: EMERGENCY PHYSICIAN Emergency Medicine; FAMILY PHYSICIAN Internal Medicine
DX: L03.113 Cellulitis of right upper limb (principal)
CPT/HCPCS: 99283